=== PATIENT | male | born 1990 | race Caucasian/White ===

== ENCOUNTER 2023-12-01 14:19 | Emergency (ER) | payer OTHER, SELFPAY ==
[2023-12-01 14:20] VITALS: BP 134/70
[2023-12-01 14:46] LABS: % Basophils 0.1 % (0-2); % Eosinophils 0.1 % (0-6); % Immature Granulocytes 0.2 % (0-0.5); % Lymphocytes 13.4 % (20.5-51.1); % Monocytes 2.9 % (1.7-9.3); % Neutrophils 83.3 % (42.2-75.2); Absolute Lymphocytes 1.1 10^3/uL (1.2-3.4); Absolute Monocytes 0.2 10^3/uL (0.1-0.6); Absolute Neutrophils 6.8 10^3/uL (1.4-6.5); Hematocrit 41.7 % (39.0-52.0); Hemoglobin 14.9 g/dL (13.0-18.0); Mean Corp Hgb Conc. 35.7 g/dL (33.0-37.0); Mean Corpuscular Hgb 29.9 pg (27.0-31.0); Mean Corpuscular Volume 83.7 fL (80.0-94.0); Mean Platelet Volume 8.8 fL (7.4-10.4); Nucleated Red Blood Cells % 0 % (-); Platelet Count 225 10^3/uL (130-400); Red Blood Cell Count 4.98 10^6/uL (4.70-6.10); Red Cell Dist. Width 12.8 % (11.5-14.5); White Blood Cell Count 8.1 10^3/uL (4.8-10.8)
[2023-12-01 15:05] LABS: ALT (SGPT) 19 U/L (0-50); AST (SGOT) 22 U/L (17-59); Alkaline Phosphatase 65 U/L (38-126); Blood Urea Nitrogen 14 mg/dl (9-20); Calcium 10.5 mg/dl (8.4-10.2); Carbon Dioxide 20 mmol/L (22-30); Chloride 106 mmol/L (98-107); Glucose 134 mg/dl (70-99); Lipase 57 U/L (23-300); Potassium 4.5 mmol/L (3.5-5.1); Sodium 141 mmol/L (135-145); Total Bilirubin 1.1 mg/dl (0.2-1.3); Total Protein 7.2 g/dl (6.3-8.2); eGFR > 60.00
[2023-12-01 15:06] LABS: Alcohol None Detected
[2023-12-01 15:11] LABS: Glucose - Point of Care 111 mg/dl (70-99)
[2023-12-01 15:14] VITALS: BMI 22.1
--- NOTE | 2023-12-01 15:16 | EDRN ---
Pt woke this morning and did not feel well, vomited then drove to work. Pt vomited at work, thought he might have food poisoning so he went home. Pt has not been able to eat/drink since this morning. Pt feels light headed, hot/cold. No diarrhea.
Pt says he ate [employer] food last night. No fever, cough. Pt says while he was in the waiting room he felt numbness in his chest, arms and face but does not have it now. 'I'm so out of it right now.' Abd pain is constant. Pt says he took 5
showers/baths today which helped with stomach discomfort briefly.
[2023-12-01 15:29] VITALS: BP 127/69
[2023-12-01 16:08] VITALS: BP 110/55
--- NOTE | 2023-12-01 16:27 | ED.GENMED ---
History of Present Illness
General
Chief Complaint: Abdominal Symptoms
Source: patient
Time Seen by Provider: 12/01/23 15:32
History of Present Illness
History of Present Illness:
This patient is a 33-year-old male presents emergency department with reported intractable nausea and nonbloody vomiting since he woke up this morning and continues. He also describes abdominal cramping that at times is severe. His symptoms are
relieved with a warm shower and he says he is taking up to 7 showers a day trying to feel better. He denies fever, chills, chest pain, shortness of breath, back pain, headache, dizziness, bleeding, or other complaints. Patient uses medical
marijuana, says he spaces the doses out throughout the day.
Past History
Past History
ED Past Medical History: Other (Migraines)
ED Past Surgical History: None
Social History
Tobacco: Non-smoker
Alcohol: None
Drug: Marijuana
Personal:
Employment: Employed
Phy Exam
Physical Exam
Physical Exam:
GENERAL: Alert , in no apparent distress but looks nauseous
EYE: pupils equal and reactive
NECK: Supple, no significant adenopathy.
ENT: o/p clr, mm dry
CARDIAC: Regular rate and rhythm .
LUNGS: Clear breath sounds bilaterally, no acute respiratory distress, no wheezes/rales/rhonchi
ABDOMEN: Soft, without focal tenderness, no r/g, no cvat
NEUROLOGICAL: Alert and oriented, no focal neuro deficits
SKIN: Warm and dry, skin intact.
MUSCULOSKELETAL: No edema, well perfused.
PSYCH: Normal and appropriate interaction.
Course
Orders/Labs/Results
Orders:
Orders
12/01/23 14:38
Alcohol Urgent
Complete Blood Count/With Diff Urgent
Comprehensive Metabolic Panel Urgent
Lipase Urgent
12/01/23 16:25
0.9% Sodium Chloride 1000 ml [Nss] 1,000 ml IV BOLUS
Haloperidol Lactate [Haldol] 5 mg IV NOW STA
Abnormal Lab Results
12/01/23 12/01/23
14:38 15:09
Absolute Neuts (auto) 6.8 H 10^3/uL
(1.4-6.5)
Absolute Lymphs (auto) 1.1 L 10^3/uL
(1.2-3.4)
Neutrophils % 83.3 H %
(42.2-75.2)
Lymphocytes % 13.4 L %
(20.5-51.1)
Carbon Dioxide 20 L mmol/L
(22-30)
Glucose 134 H mg/dl
(70-99)
Calcium 10.5 H mg/dl
(8.4-10.2)
POC Glucose 111 H mg/dl
(70-99)
12/01/23 14:38
12/01/23 14:38
Vital Signs
Initial and Last Documented VS:
Initial Vital Signs
Temp Pulse Resp BP Pulse Ox
98.5 F 60 16 134/70 100
12/01/23 14:20 12/01/23 14:20 12/01/23 14:20 12/01/23 14:20 12/01/23 14:20
Last Documented Vital Signs
Temp Pulse Resp BP Pulse Ox
98.5 F 43 14 125/60 100
12/01/23 14:20 12/01/23 17:03 12/01/23 17:03 12/01/23 17:03 12/01/23 14:20
*Critical Care Note
Total Time (30-74mins, 75-104mins- exclusive of procedures): Not Applicable
Update Note
Update Note:
Patient presents to the Emergency Department with __intractable nausea and vomiting
Number and Complexity of Problems Addressed at the Encounter
� Chronic conditions affecting care:
� Acute Exacerbation and/or Progression of Chronic Illness:
� Differential Diagnosis includes: But not limited to CHS, viral syndrome, pancreatitis, cholecystitis, etc. etc.
Amount and/or Complexity of Data to be Reviewed and Analyzed
� I performed an independent evaluation of and my interpretation is:
EKG:
CT:
Xrays:
Laboratory Studies: Unremarkable
Other:
� Review of other/old records reveals:
� Clinical information was obtained by an independent historian:
� Prescriptions/Medications Considered but not given:
� Further testing considered but not performed:
Risk of Complications and/or Morbidity or Mortality of Patient Management
� Social determinants of health affecting care:
� Discussion with other providers (PCP, Hospitalists, Consultants, etc):
� Escalation of care including admission/observation vs risk of discharge considered: Given unremarkable workup. Thus far, symptoms relieved with warm showers, regular marijuana use, I did suggest to patient the clinical
suspicion for CHS. Will treat his symptoms at this time.
608PM pT FEELS MUCH BETTER, WANTS TO GO HOME, NO N/V, ABD SOFT AND NOTENDER. D/W HIM IMPORT OF F/U AND REASONS TO RTED.
ED Attending Note
-
Portions of this chart may have been created with voice recognition software.� Occasional wrong word or��sound alike� substitutions may have occurred due to the inherent limitations of voice recognition software.
Discharge Plan
Departure
Patient Disposition: Home (Routine Discharge)
Date of Disposition: 12/01/23
Time of Disposition: 18:03
Patient with high blood pressure during this ER visit?: Yes
Condition: Good
Discharge Problem:
Cannabinoid hyperemesis syndrome
Instructions: Cannabis hyperemesis syndrome, BLOOD PRESSURE
Prescriptions:
New
ondansetron HCl 4 mg tablet
4 mg PO Q8H PRN (Reason: nausea and vomiting) 2 Days Qty: 6 0RF
Referrals:
Rahul Martinez DO [Family Provider] - Follow up in 2-3 days
Activity Restrictions/Additional Instructions:
IF YOU DEVELOP RECURRENT VOMITING OR ABDMOMINAL PAIN, FEVER, CHEST PAIN, TROUBLE BREATHING, OR OTHER WORRISOME SIGNS, PLEASE RETURN TO THE ER IMMEDIATELY.
Interventions
Interventions:
*Risk Screen - Suicide Last Done: 12/01/23 14:20
*General Assessment Last Done: 12/01/23 14:20
*Neglect/Abuse Screening Last Done: 12/01/23 14:20
ED- Fall Risk Assessment Last Done: 12/01/23 15:29
*ED COVID-19 Vaccine History Last Done: 12/01/23 14:20
WT-Kenlda-Cqccmvaheg Assessment Last Done: 12/01/23 15:29
Discharge Date and Time
Print Language: SLOVAK
[2023-12-01] MEDS: NSS 1000 IV (16:57)
[2023-12-01] MEDS: HALDOL 5 MG IV (16:57)
[2023-12-01 17:03] VITALS: BP 125/60
[2023-12-01 18:00] VITALS: BP 118/64
== END 2023-12-01 18:14 | disposition home or self-care (01) ==
LOC: EMR 14:19
PROVIDERS: Emergency Medicine; EMERGENCY PHYSICIAN Emergency Medicine; FAMILY PHYSICIAN Family Medicine
DX: R11.2 Nausea with vomiting, unspecified (principal); F12.90 Cannabis use, unspecified, uncomplicated; Z79.899 Other long term (current) drug therapy
CPT/HCPCS: 99283; 96374; 96361; 80053; 82077; 82962; 83690; 85025

== ENCOUNTER → 2025-02-25 07:57 | Outpatient (REF) | payer OTHER, SELFPAY | LOC: DHSLP 07:57 | PROVIDERS: ATTENDING PHYSICIAN Internal Medicine Critical Care Medicine; FAMILY PHYSICIAN Family Medicine | DX: G47.19 Other hypersomnia (principal); R06.83 Snoring | CPT/HCPCS: 95800 ==